=== PATIENT | female | born 1945 | race Caucasian/White ===

== ENCOUNTER → 2017-05-20 | Outpatient (CLI) | payer OTHER ==
[2016-05-16 15:12] VITALS: BP 166/82; PULSE 77
[~2017-05-20] MED LIST: ANAS1TAB6 PO; APIX1TAB3; ASPCH81X PO; CALC-354 PO; CHOL100010 PO; METO25TA3 PO; PANT40TA PO; SELE200C4 PO; VITACAP37 PO
[2017-05-20 12:32] VITALS: BP 129/77; PULSE 76; TEMP 36.5; O2SAT 96
--- NOTE | 2017-05-20 13:35 | Radiation Oncology Follow-Up ---
Radiation Oncology Follow-Up Date of Visit May 20, 2017. 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 She has noticed no change in her breast. She has noted no masses or tenderness no change of the axilla. She's had no swelling of her arm. She is up-to-date on mammography. She had a mammogram at [facility] in [place] on 07/29/2016. This showed status post lumpectomy and radiation therapy. No findings for new or recurrent malignancy in either breast. BI-RADS Category 2. She is following with a lead application architect in regards to have problems she is having with plantar fasciitis. Allergies Coded Allergies: Chlorhexidine (Unverified Allergy, Unknown, rash, 09/07/14) Iodine (Verified Allergy, Unknown, 01/05/10) Isopropyl Alcohol (Unverified Allergy, Unknown, rash, 09/07/14) Pseudoephedrine (Unverified Allergy, Unknown, unknown, 09/07/14) Uncoded Allergies: COLD MEDICINE (Allergy, Intermediate, causes jitteriness, 05/02/15) Home Medications Scheduled Aspirin (Aspirin Chewable), 81 MG PO DAILY Calcium Carbonate-Cholecalcife (Caltrate 600+D), 1 TAB PO BID Cholecalciferol (Vitamin D), 1,000 INTER.UNIT PO BID Metoprolol Succ (Toprol Xl) (Toprol-Xl), 25 MG PO DAILY Pantoprazole (Protonix), 40 MG PO DAILY Selenium (Selenicaps-200), 1 CAP PO DAILY Vitamin E (E-400), 1 CAP PO DAILY Review of Systems Gastrointestinal: Symptoms: Nausea GI Comments: Waves of nause that she's relating to her pain in wrist and heel Oral: Symptoms: No Problems Respiratory: Symptoms: SOB With Exertion Other Respiratory: That she relates to inactivity Urinary: Symptoms: WNL Comments: nocturia times 2-3 or -5-6- for hot flashes Skin: Symptoms: No Problems Breast: Right Upper Arm Measurement: 32.0 Right Mid Arm Measurement: 24.0 Right Wrist Measurement: 15.5 Left Upper Arm Measurement: 32.0 Left Mid Arm Measurement: 23.5 Left Wrist Measurement: 15.5 Arm Dominence: Right Patient Cosmetic Evaluation: Good Staff Cosmetic Evalaluation: Good Physical Exam Vital Signs Date Time Temp Pulse Resp B/P (MAP) Pulse Ox O2 Delivery O2 Flow Rate FiO2 05/20/17 12:32 36.5 76 24 129/77 96 Pain: Pain Location: None Patient Pain Scale: 0 - 10 Initial Pain Intensity: 0.0 General Appearance: no apparent distress Eyes: normal inspection, EOMI ENT: normal ENT inspection, hearing grossly normal Neck: no adenopathy, thyroid normal Respiratory/Chest: lungs clear, no respiratory distress, no accessory muscle use Breast: Breast examination reveals well-healed incisions of the left breast. There are no masses or tenderness and no axillary adenopathy. She is no skin retractions or nipple changes. Using the [place] score cosmesis she has a excellent outcome. The right breast showed no masses or tenderness and no axillary adenopathy. Cardiovascular: regular rate, rhythm, no gallop, no murmur Neurologic/Psychiatric: no motor/sensory deficits, alert, normal mood/affect Skin: warm/dry Additional Studies Mammography as reviewed above. Assessment & Plan Plan: She does have a mammogram scheduled for late July early August. She had been given an order from Dr. Castellon's office and she scheduled this at [facility]. She'll continue regular follow-up with her primary care physician. The asked her to return to our office in 1 year. She may call if she has any questions or concerns in the interim. She is familiar with exercises that she will need to be doing for the plantar fasciitis. She is also going to follow-up with the lead application architect. And she also may see a massage therapist for the foot discomfort. Total Time In Follow-Up I spent 20 minutes speaking to the patient performing examination. I spent 15 minutes reviewing information and completing this note. Copy To Tay Castellon M.D.; Bhanu Tejeda M.D. Problem Qualifiers (1) Breast cancer: Breast location: upper inner quadrant of breast Estrogen receptor status: positive Patient sex: female Laterality: left Qualified Codes: C50.212 - Malignant neoplasm of upper-inner quadrant of left female breast; Z17.0 - Estrogen receptor positive status [ER+]
== END | disposition home or self-care (01) ==
LOC: C.ONC 12:26
PROVIDERS: ATTEND Physician Assistant Medical
DX: Z08 Encounter for follow-up examination after completed treatment for malignant neoplasm (principal); Z92.3 Personal history of irradiation; Z85.3 Personal history of malignant neoplasm of breast